=== PATIENT | male | born 1960 | race Caucasian/White ===

== ENCOUNTER 2020-06-09 15:58 | Observation (INO) | payer OTHER ==
[~2020-06-09] VITALS: Ht 172.7 cm; Wt 90.0 kg
[~2020-06-09 15:58] MED LIST: ASPIRIN EC325 MG PO; ATIVAN1 MG PO; COLACE 100MG C100 MG PO; FLOMAX0.4 MG PO; IMDUR ER TAB 6060 MG PO; KLONOPIN TAB 00.5 MG PO; LIPITOR TAB 2020 MG PO; LOPRESSOR100 MG PO; NEURONTIN 400400 MG PO; NEURONTIN800 MG PO; NITROGLYCERIN0.4 MG SL; NITROMIST4.1 GM TL; NITROMIST8.5 GM PO; NORVASC2.5 MG PO; OXYCODONE HCL15 MG PO; OXYCONTIN30 MG PO; PLAVIX 75 MG TA75 MG PO; PROTONIX40 MG PO; RANEXA1000 MG PO; RANEXA500 MG PO; ROXICODONE30 MG PO; STOOL SOFTENER100 MG PO; TYLENOL 325MG325 MG PO; TYLENOL 650 MG PO; TYLENOL 8 HOUR650 MG PO; TYLENOL325 MG PO; UROXATRAL10 MG PO; WELLBUTRIN SR150 M1 PO; ZANTAC300 MG PO
[2020-06-09 16:49] LABS: HEMOGLOBIN 16.9 gm/dl (14.0-17.5); RED BLOOD COUNT 4.82 M/UL (4.20-5.50); WHITE BLOOD COUNT 8.7 K/UL (4.5-11.0)
[2020-06-09 17:35] LABS: BUN/CREATININE RATIO 25 (0-10)
[2020-06-09] MEDS ORDERED: LOPRESSOR100 MG PO (20:25)
[2020-06-10 05:51] LABS: RED BLOOD COUNT 4.84 M/UL (4.20-5.50); WHITE BLOOD COUNT 8.2 K/UL (4.5-11.0)
[2020-06-10 06:57] LABS: BUN/CREATININE RATIO 22 (0-10)
== END 2020-06-10 21:00 | disposition home or self-care (01) ==
LOC: ER1 15:58 → CDU 18:32 → MED SURG 4 23:33
PROVIDERS: Preventive Medicine Occupational Medicine; ADMIT Internal Medicine
DX: R55 Syncope and collapse (principal); R07.9 Chest pain, unspecified; I25.10 Atherosclerotic heart disease of native coronary artery without angina pectoris; I10 Essential (primary) hypertension; E78.5 Hyperlipidemia, unspecified; I25.2 Old myocardial infarction; Z87.891 Personal history of nicotine dependence; Z86.73 Personal history of transient ischemic attack (TIA), and cerebral infarction without residual deficits; Z76.5 Malingerer [conscious simulation]; Z95.5 Presence of coronary angioplasty implant and graft; Z79.82 Long term (current) use of aspirin; Z79.02 Long term (current) use of antithrombotics/antiplatelets; Z79.891 Long term (current) use of opiate analgesic; Z79.899 Other long term (current) drug therapy; Z20.822 Contact with and (suspected) exposure to COVID-19
CPT/HCPCS: 0240U; 36415; 70450; 70498; 70551; 71045; 72125; 73130; 73560; 80053; 82550; 82553; 83690; 83874; 83880; 84484; 85025; 85610; 85652; 85730; 86140; 93005; 93880; 96372; 97162; 99285; G0378; J1650; J7030; Q9967

== ENCOUNTER 2020-09-04 14:25 | Emergency (ER) | payer OTHER ==
[2020-09-04 15:09] LABS: HEMOGLOBIN 15.4 gm/dl (14.0-17.5); RED BLOOD COUNT 4.64 M/UL (4.20-5.50); WHITE BLOOD COUNT 10.8 K/UL (4.5-11.0)
[2020-09-04 15:42] LABS: BUN/CREATININE RATIO 22 (0-10)
== END 2020-09-04 18:29 | disposition home or self-care (01) ==
LOC: ER1 14:25
PROVIDERS: Emergency Medicine
DX: R55 Syncope and collapse (principal); R07.9 Chest pain, unspecified; I11.9 Hypertensive heart disease without heart failure; Z87.891 Personal history of nicotine dependence
CPT/HCPCS: 70450; 71045; 80053; 82550; 82553; 83605; 83690; 83735; 83874; 83880; 84484; 85025; 85379; 93005; 99285; G0480; J2310

== ENCOUNTER 2021-01-17 19:48 | Emergency (ER) | payer OTHER ==
[~2021-01-17 19:48] MED LIST changes: +ISOSORBIDE MONO60 MG PO; +LISINOPRIL5 MG PO
[2021-01-17 20:09] LABS: HEMOGLOBIN 15.4 gm/dl (14.0-17.5); RED BLOOD COUNT 4.45 M/UL (4.20-5.50)
[2021-01-17 20:33] LABS: BUN/CREATININE RATIO 27 (0-10)
== END 2021-01-17 22:50 | disposition home or self-care (01) ==
LOC: ER1 19:48
PROVIDERS: Emergency Medicine
DX: R07.2 Precordial pain (principal); I25.10 Atherosclerotic heart disease of native coronary artery without angina pectoris; I50.9 Heart failure, unspecified; I25.2 Old myocardial infarction; Z95.5 Presence of coronary angioplasty implant and graft; Z87.891 Personal history of nicotine dependence
CPT/HCPCS: 71045; 80053; 82550; 82553; 83690; 83874; 83880; 84484; 85025; 93005; 96374; 96375; 99285; J2270; J2405

== ENCOUNTER 2021-05-20 02:39 | Inpatient (IN) | payer OTHER ==
[~2021-05-20] VITALS: Ht 172.7 cm; Wt 86.2 kg
[2021-05-20 03:07] LABS: HEMOGLOBIN 16.3 gm/dl (14.0-17.5); RED BLOOD COUNT 4.78 M/UL (4.20-5.50); WHITE BLOOD COUNT 9.3 K/UL (4.5-11.0)
[2021-05-20 03:33] LABS: BUN/CREATININE RATIO 18 (0-10)
[2021-05-21 09:17] LABS: HEMOGLOBIN 15.6 gm/dl (14.0-17.5); RED BLOOD COUNT 4.63 M/UL (4.20-5.50)
[2021-05-21 09:21] LABS: WHITE BLOOD COUNT 14.3 K/UL (4.5-11.0)
[2021-05-21 09:40] LABS: BUN/CREATININE RATIO 25 (0-10)
[2021-05-22 04:20] LABS: HEMOGLOBIN 13.9 gm/dl (14.0-17.5); WHITE BLOOD COUNT 15.5 K/UL (4.5-11.0)
[2021-05-22 04:22] LABS: RED BLOOD COUNT 4.06 M/UL (4.20-5.50)
[2021-05-22 04:36] LABS: BUN/CREATININE RATIO 36 (0-10)
[2021-05-22] MEDS ORDERED: LISINOPRIL5 MG PO (10:16)
[2021-05-22] MEDS ORDERED: PLAVIX 75 MG TA75 MG PO (10:16)
[2021-05-22] MEDS ORDERED: ISOSORBIDE MONO60 MG PO (10:16)
[2021-05-22] MEDS ORDERED: FLOMAX0.4 MG PO (10:16)
[2021-05-22] MEDS ORDERED: METOPROLOL SUCC50 MG PO (10:16)
[2021-05-22] MEDS ORDERED: LIPITOR TAB 2020 MG PO (10:16)
[2021-05-22] MEDS ORDERED: ASPIRIN EC81 MG PO (10:16)
[2021-05-22] MEDS ORDERED: ISOSORBIDE MONO30 MG PO (10:16)
[2021-05-22] MEDS ORDERED: [UNRECOGNIZED DRUG - OTHER] (10:37)
[2021-05-22] MEDS ORDERED: INHALERS (10:37)
[2021-05-22] MEDS ORDERED: [UNRECOGNIZED DRUG - REMARK] (10:37)
[2021-05-22] MEDS ORDERED: BENZONATATE200 MG PO (11:02)
[2021-05-22] MEDS ORDERED: PROVENTIL HFA6.7 GM INH (11:04)
[2021-05-22] MEDS ORDERED: AZITHROMYCIN500 MG PO (11:04)
[2021-05-22] MEDS ORDERED: ROBITUSSIN AC480 ML PO (11:06)
[2021-05-22] MEDS ORDERED: SYMBICORT 16010.2 GM INH (11:07)
== END 2021-05-22 13:24 | disposition home or self-care (01) | DRG 917 ==
LOC: ER1 02:39 → CDU 05:03 → PROG CARE 19:36
PROVIDERS: Family Medicine; Internal Medicine; Internal Medicine Pulmonary Disease; ADMIT Internal Medicine
PROC: 5A09357 Assistance with Respiratory Ventilation, Less than 24 Consecutive Hours, Continuous Positive Airway Pressure (ICD-10-PCS; 2021-05-20)
PROC: B24BZZZ Ultrasonography of Heart with Aorta (ICD-10-PCS; principal; 2021-05-21)
DX: T40.601A Poisoning by unspecified narcotics, accidental (unintentional), initial encounter (principal); G92.9 Unspecified toxic encephalopathy; J18.9 Pneumonia, unspecified organism; J96.21 Acute and chronic respiratory failure with hypoxia; J96.22 Acute and chronic respiratory failure with hypercapnia; J44.0 Chronic obstructive pulmonary disease with (acute) lower respiratory infection; I50.22 Chronic systolic (congestive) heart failure; E87.2 Acidosis; J44.1 Chronic obstructive pulmonary disease with (acute) exacerbation; Z76.5 Malingerer [conscious simulation]; Z20.822 Contact with and (suspected) exposure to COVID-19; F19.10 Other psychoactive substance abuse, uncomplicated; E78.5 Hyperlipidemia, unspecified; I11.0 Hypertensive heart disease with heart failure; F41.9 Anxiety disorder, unspecified; F32.A Depression, unspecified; I25.10 Atherosclerotic heart disease of native coronary artery without angina pectoris; I08.1 Rheumatic disorders of both mitral and tricuspid valves; G89.4 Chronic pain syndrome; I25.5 Ischemic cardiomyopathy; G47.33 Obstructive sleep apnea (adult) (pediatric); Y83.8 Other surgical procedures as the cause of abnormal reaction of the patient, or of later complication, without mention of misadventure at the time of the procedure; Z91.14 Patient's other noncompliance with medication regimen; Z95.5 Presence of coronary angioplasty implant and graft; Z86.73 Personal history of transient ischemic attack (TIA), and cerebral infarction without residual deficits; Z90.49 Acquired absence of other specified parts of digestive tract; Z87.891 Personal history of nicotine dependence; Z82.49 Family history of ischemic heart disease and other diseases of the circulatory system; J20.9 Acute bronchitis, unspecified
CPT/HCPCS: ECHO; 36415; 36600; 71045; 71250; 80048; 80053; 82550; 82553; 82803; 82805; 82962; 83036; 83605; 83735; 83874; 83880; 84100; 84484; 85025; 85027; 86140; 87040; 93005; 93306; 94640; 94660; 94664; 94760; 96374; 96375; 96376; 99285; G0480; J2185; J2405; J2920; Q0177; U0002

== ENCOUNTER 2021-11-28 14:20 | Inpatient (IN) | payer OTHER ==
[~2021-11-28] VITALS: Ht 172.7 cm; Wt 89.1 kg
[~2021-11-28 14:20] MED LIST changes: +ASPIRIN EC81 MG PO; +AZITHROMYCIN500 MG PO; +BENZONATATE200 MG PO; +INHALERS; +ISOSORBIDE MONO30 MG PO; +METOPROLOL SUCC50 MG PO; +PROVENTIL HFA6.7 GM INH; +ROBITUSSIN AC480 ML PO; +SYMBICORT 16010.2 GM INH; +[UNRECOGNIZED DRUG - OTHER]; +[UNRECOGNIZED DRUG - REMARK]
[2021-11-28 15:21] LABS: HEMOGLOBIN 14.8 gm/dl (14.0-17.5); RED BLOOD COUNT 4.21 M/UL (4.20-5.50); WHITE BLOOD COUNT 8.3 K/UL (4.5-11.0)
[2021-11-28 16:18] LABS: BUN/CREATININE RATIO 20 (0-10)
[2021-11-28] MEDS ORDERED: ASPIRIN EC325 MG PO (18:32)
[2021-11-28] MEDS ORDERED: ATORVASTATIN CA80 MG PO (18:33)
[2021-11-28] MEDS ORDERED: CLOPIDOGREL75 MG PO (18:35)
[2021-11-28] MEDS ORDERED: ISOSORBIDE MONO30 MG PO (18:37)
[2021-11-28] MEDS ORDERED: METOPROLOL SUCC50 MG PO (18:38)
[2021-11-28] MEDS ORDERED: FLOMAX 0.4 MG0.4 MG PO (18:41)
[2021-11-28] MEDS ORDERED: BUPROPION HCL150 MG PO (18:43)
[2021-11-28] MEDS ORDERED: PROTONIX40 MG PO (18:44)
--- NOTE | 2021-11-29 02:08 | NUR ---
PT REFUSED A BLOOD DRAW TO GET A TROPININ LEVEL. PT SAID THAT HE DOES NOT WANT ANYMORE PAIN. I EDUCATED THE PATIENT ON THE IMPORTANCE OF GETTING HIS LABS DRAWN BECAUSE HE IS COMPLAINING OF CHEST PAIN AND IS DIAPHORETIC. PATIENT SAID THAT HE DOES NOT CARE. I ASKED PATIENT IF HE IS SUICIDAL AND FEELING LIKE HE DOES NOT WANT TO LIVE. PATIENT SAID THAT HE HAS TWO GRANDCHILDREN TO LIVE FOR. PATIENT HAS REFUSED NITRO AND STATED "ITS NOT GIVING ME A HEADACHE SO I KNOW ITS NOT WORKING." OTHER NURSE WITNESSED THIS EVENT: VITALY HARE RN
--- NOTE | 2021-11-29 02:45 | NUR ---
PT WAS COMPLAINING OF CHEST PAIN. SUBLINGAL NITRO WAS ADMINITERED. PT REFUSED TO TAKE MORE THAN 1 NITRO PILL AT A TIME. MD NOTIFIED.PT EDUCATED THAT IT NORMALLY TAKES 3 NITRO PILLS TO FEEL A DIFFERENCE.
--- NOTE | 2021-11-29 04:43 | NUR ---
PT WAS TOLD THAT WE NEEDED A URINE SPECIMINE TO SEND TO LAB. PT WILL NOT PEE IN CUP AND CONTINUES TO USE BATHROOM AND FLUSH.
[2021-11-29] MEDS ORDERED: ASPIRIN EC81 MG PO (16:01)
[2021-11-29] MEDS ORDERED: METOPROLOL SUCC50 MG PO (16:01)
[2021-11-29] MEDS ORDERED: FLOMAX 0.4 MG0.4 MG PO (16:01)
[2021-11-29] MEDS ORDERED: LISINOPRIL5 MG PO (16:01)
[2021-11-29] MEDS ORDERED: PROTONIX40 MG PO (16:01)
[2021-11-29] MEDS ORDERED: PROVENTIL HFA6.7 GM INH (16:01)
[2021-11-29] MEDS ORDERED: ISOSORBIDE MONO30 MG PO (16:01)
[2021-11-29] MEDS ORDERED: CLOPIDOGREL75 MG PO (16:01)
[2021-11-29] MEDS ORDERED: ATORVASTATIN CA80 MG PO (16:01)
[2021-11-29] MEDS ORDERED: LASIX TAB 20 MG20 MG PO (16:14)
[2021-11-29] MEDS ORDERED: NITROGLYCERIN0.4 MG SL (16:14)
[2021-11-29] MEDS ORDERED: SYMBICORT 16010.2 GM INH (16:14)
[2021-11-29] MEDS ORDERED: K-TAB ER20 MEQ PO (16:17)
[2021-11-29] MEDS ORDERED: ZESTRIL2.5 MG PO (16:32)
[2021-11-29] MEDS ORDERED: LIDOCAINE1 EAC1 TP (16:47)
--- NOTE | 2021-11-29 17:52 | NUR ---
1730 Patient refused to have cardiac labs drawn, stated it hurt too bad.
--- NOTE | 2021-11-30 15:59 | NUR ---
0941- Notified Dr. Gar of tele reading of 8 beat run of vtach and patient having complaints of nausea and severe stomach pain.
--- NOTE | 2021-11-30 16:01 | NUR ---
1152- notified dr. lara of patient being non complaint with telemetry and pulse ox at times. Patient encouraged to wear tele monitor and educated on the need. Continues to refuse.
--- NOTE | 2021-11-30 16:04 | NUR ---
1445- In patients room at this time with PAINTER ASSISTANT. Patient noted to be lethargic, but able to answer questions. Patient with clothing off laying in the bed. Two small bags of unknown substances noted. Security called and substances handed over to him.
--- NOTE | 2021-11-30 18:51 | NUR ---
1830- PATIENT PULLED OUT NG TUBE AT THIS TIME. DR ARMAS AND DR BULLOCK NOTIFIED OF PATIENT REFUSING TO HAVE IT INSERTED AGAIN. OKAY WITH LEAVING IT OUT AT THIS TIME.
--- NOTE | 2021-11-30 21:45 | NUR ---
WENT TO TAKE MEDS FOR 2100 TO PATIENT AND PATIENT STATED "I AM NOT TAKING ANY OF THIS DAMN MEDICINE." I EDUCATED THE PATIENT OF THE IMPORTANCE OF TAKING HIS PRESCRIPTION MEDICINE. HE TOLD ME TO JUST LEAVE HIM ALONE AND LET HIM SLEEP.
--- NOTE | 2021-12-01 00:07 | NUR ---
WHILE IN PATIENTS ROOM, PATIENT STATED THAT HE DID NOT CARE IF HE . I ASKED THE PATIENT IF HE HAD A PLAN TO HARM HIMSELF AND THE PATIENT STATED "NO, IM NOT GOING TO HURT MYSELF BUT IF I FROM NATURAL CAUSES THAT WOULD BE GREAT."
[2021-12-01 06:35] LABS: HEMOGLOBIN 18.2 gm/dl (14.0-17.5); RED BLOOD COUNT 5.37 M/UL (4.20-5.50); WHITE BLOOD COUNT 12.1 K/UL (4.5-11.0)
[2021-12-01 06:52] LABS: BUN/CREATININE RATIO 37 (0-10)
--- NOTE | 2021-12-01 21:26 | NUR ---
TIME 2003, PT REFUSED LOVENOX AND TELEMETRY. EDUCATION PROVIDED, VERBALIZED UNDERSTANDING, CONT TO REFUSE, ENCOURAGED TO NOTIFY NURSE IF MIND CHANGES.
[2021-12-02 06:20] LABS: WHITE BLOOD COUNT 11.5 K/UL (4.5-11.0)
[2021-12-02 06:27] LABS: HEMOGLOBIN 16.1 gm/dl (14.0-17.5); RED BLOOD COUNT 4.55 M/UL (4.20-5.50)
[2021-12-02 06:48] LABS: BUN/CREATININE RATIO 29 (0-10)
[2021-12-02] MEDS ORDERED: COLACE100 MG PO (10:59)
== END 2021-12-02 11:12 | disposition home or self-care (01) | DRG 291 ==
LOC: ER1 14:20 → CDU 17:56 → MED SURG 4 17:56
PROVIDERS: Emergency Medicine; ADMIT Internal Medicine
PROC: B24BZZZ Ultrasonography of Heart with Aorta (ICD-10-PCS; principal; 2021-11-29)
DX: I11.0 Hypertensive heart disease with heart failure (principal); I50.23 Acute on chronic systolic (congestive) heart failure; K56.609 Unspecified intestinal obstruction, unspecified as to partial versus complete obstruction; M54.9 Dorsalgia, unspecified; G89.4 Chronic pain syndrome; F41.9 Anxiety disorder, unspecified; I08.1 Rheumatic disorders of both mitral and tricuspid valves; F32.A Depression, unspecified; E78.5 Hyperlipidemia, unspecified; I25.10 Atherosclerotic heart disease of native coronary artery without angina pectoris; Z91.14 Patient's other noncompliance with medication regimen; Z95.5 Presence of coronary angioplasty implant and graft; Z79.01 Long term (current) use of anticoagulants; Z79.82 Long term (current) use of aspirin; I25.2 Old myocardial infarction; Z86.73 Personal history of transient ischemic attack (TIA), and cerebral infarction without residual deficits; Z87.891 Personal history of nicotine dependence; Z82.49 Family history of ischemic heart disease and other diseases of the circulatory system; Z76.5 Malingerer [conscious simulation]
CPT/HCPCS: ECHO; 36415; 71045; 74018; 80053; 82550; 82553; 83605; 83690; 83735; 83880; 84132; 84484; 85025; 85027; 85379; 87040; 93005; 93306; 93970; 94640; 94664; 94760; 96372; 96374; 96375; 96376; 99285; G0378; J1650; J1940; J2270; J2310; J2405; Q9967